=== PATIENT | female | born 1975 | race Caucasian/White ===

== ENCOUNTER → 2016-07-01 | Day surgery (SDC) | payer OTHER ==
--- NOTE | 2016-06-30 18:31 | History & Physical Pre-Op ---
General Information and HPI History of Present Illness: 41-year-old 2 para 2 with bilateral ovarian cysts status post ovarian cystectomy December 2015 with mucinous cyst now has recurrence of same cyst as well as contralateral. CA-125 is within normal limits. Patient is admitted today for bilateral laparoscopic ovarian cystectomy. Allergies/Medications Allergies: Coded Allergies: NO KNOWN ALLERGIES (02/29/12) Home Med list No Known Home Medications Past History Medical History Neurological: NONE EENT: NONE Cardiovascular: NONE Respiratory: NONE Gastrointestinal: NONE Hepatic: NONE Renal: NONE Musculoskeletal: NONE Psychiatric: NONE Endocrine: NONE Tetanus Vaccine: 03/02/12 Surgical History Pertinent Surgical History: tubal ligation, laparoscopic ovarian cystectomy Review of Systems Review of Systems Constitutional: Reports: no symptoms. EENTM: Reports: no symptoms. Cardiovascular: Reports: no symptoms. Respiratory: Reports: no symptoms. GI: Reports: no symptoms. Genitourinary: Reports: no symptoms. Musculoskeletal: Reports: no symptoms. Skin: Reports: no symptoms. Neurological/Psychological: Reports: no symptoms. Hematologic/Endocrine: Reports: no symptoms. Immunologic/Allergic: Reports: no symptoms. All Other Systems: Reviewed and Negative Exam & Diagnostic Data Last 24 Hrs of Vital Signs/I&O Vital signs stable Physical Exam: HEENT: Normocephalic atraumatic Chest: Clear to auscultation Cardiovascular: Normal S1, S2 Abdomen: Soft nontender no mass Pelvic: Deferred to the OR Extremities: No clubbing cyanosis or edema Neurologic: Nonfocal Assessment/Plan Assessment/Plan: Bilateral ovarian cysts, mucinous pathology Plan: Bilateral laparoscopic ovarian cystectomies As Ranked By This Provider Problem List: 1. Ovarian cyst
[~2016-07-01] VITALS: Ht 162.6 cm; Wt 67.6 kg
--- NOTE | 2016-07-06 17:32 | Operative Report ---
Operative/Inv Procedure Report Surgery Date: 07/01/16 Name of Procedure: Bilateral laparoscopic ovarian cystectomies. Pre-Operative Diagnosis: Bilateral ovarian cysts Post-Operative Diagnosis: Same Estimated Blood Loss: less than 50ml Surgeon/Camp Advisor: LAMONTE ROBERTSON MD Anesthesia: general endotracheal tube Operative/Procedure Note Note: The patient was brought to the operating room placed on the OR table in the dorsal supine position. She was given an adequate anesthesia she was successfully intubated. She was repositioned in a modified dorsal lithotomy. She was prepped and draped in usual sterile fashion. A weighted speculum was inserted into the vagina with the help of a [place] retractor single-tooth tenaculum was attached to the anterior lip of the cervix. An acorn cannula was then inserted into the cervical os and attached to the tenaculum. The weighted speculum was removed and a Bejarano catheter was placed into the bladder and drained clear yellow urine. The surgeon's gloves were changed and attention was paid to the abdomen. An infraumbilical skin incision was made with the scalpel and the Veress needle was placed into the abdominal cavity. The abdomen was insufflated with CO2 gas under high flow and low pressure until an adequate pneumoperitoneum had been achieved. It was removed in place with a 5 mm disposable trocar. Through this trocar sleeve the camera was placed and good anatomic location was verified as well as hemostasis. The patient was then placed into Trendelenburg position. 2 lower ports were made under direct visualization both 5 mm in the midline and the left lower quadrant. Pelvic washings were obtained. The uterus appeared to be normal. The right ovary was approximately 8 x 6 cm in size and twisted anteriorly. Fallopian tube appeared normal. The left ovary had a very small cyst on. The right ovary was aspirated for small amount of fluid. Then the wall was opened with electrocautery. The wall was removed in sequential moments with the ligature until the entire to cyst was removed intact. The left ovarian cyst was also biopsied and sampled and opened. An Endobag was placed into the abdominal cavity through the lower port and the specimens were removed. The upper abdomen was noted to be normal. The surgical sites were noted to be hemostatic. The pelvis and abdomen were irrigated. The CO2 gas was allowed to escape the abdomen. The ports were closed in the usual fashion with 0 Polysorb on the fascia and 4-0 Polysorb on the skin. The vaginal instruments removed the patient was awakened and sent to recovery in good condition. All needle, sponge, and management counts were correct at the end of the procedure 2.
== END ==
LOC: STS 01:54
DX: N83.202 Unspecified ovarian cyst, left side (principal); D27.0 Benign neoplasm of right ovary; N83.201 Unspecified ovarian cyst, right side
CPT/HCPCS: 81025; 88305; 88307; J0131; J2250; J3250

== ENCOUNTER → 2017-11-03 | Day surgery (SDC) | payer OTHER ==
--- NOTE | 2017-11-02 19:40 | History & Physical Pre-Op ---
General Information and HPI History of Present Illness: This patient is a 42-year-old 3 para 3 with persistent right ovarian cyst admitted today for laparoscopic excision of right ovarian cyst. Allergies/Medications Allergies: Coded Allergies: No Known Allergies (11/02/17) Home Med list No Known Home Medications Past History Medical History Neurological: NONE EENT: NONE Cardiovascular: NONE Respiratory: NONE Gastrointestinal: NONE Hepatic: NONE Renal: NONE Musculoskeletal: NONE Psychiatric: NONE Endocrine: NONE Tetanus Vaccine: 03/02/12 Surgical History Pertinent Surgical History: tubal ligation Review of Systems Review of Systems Constitutional: Reports: no symptoms. EENTM: Reports: no symptoms. Cardiovascular: Reports: no symptoms. Respiratory: Reports: no symptoms. GI: Reports: no symptoms. Genitourinary: Reports: no symptoms. Musculoskeletal: Reports: no symptoms. Skin: Reports: no symptoms. Neurological/Psychological: Reports: no symptoms. Hematologic/Endocrine: Reports: no symptoms. Immunologic/Allergic: Reports: no symptoms. All Other Systems: Reviewed and Negative Exam & Diagnostic Data Last 24 Hrs of Vital Signs/I&O Intake & Output 11/02 1600 11/02 0800 11/02 0000 Intake Total Output Total Balance Patient 162 lb Weight Physical Exam: HEENT: Normocephalic atraumatic Chest: Clear to auscultation bilaterally Cardiovascular: Normal S1-S2 Abdomen: Soft nontender no masses Pelvic: Deferred OR Extremities: No clubbing cyanosis or edema Neurologic: Nonfocal Assessment/Plan Assessment/Plan: Right ovarian cyst simple Plan: Laparoscopic excision of right ovarian cyst As Ranked By This Provider Problem List: 1. Ovarian cyst
[~2017-11-03] VITALS: Ht 162.6 cm; Wt 73.5 kg
--- NOTE | 2017-11-03 13:51 | Operative Report ---
Operative/Inv Procedure Report Surgery Date: 11/03/17 Name of Procedure: Laparoscopic right ovarian cystectomy Pre-Operative Diagnosis: Right ovarian cyst Post-Operative Diagnosis: Same Estimated Blood Loss: less than 50ml Surgeon/Heavy Forger: Willie Melendez MD Anesthesia: general endotracheal tube Operative/Procedure Note Note: Patient is brought to the operating room placed on the OR table in the dorsal spine position. She was given adequate general anesthesia and successfully intubated. Prior to induction of anesthesia Venodyne boots were placed and activated. Patient was then repositioned in modified dorsal lithotomy and prepped and draped in usual sterile fashion. Weighted speculum was inserted into the vagina with help of a Kat retractor single-tooth tenaculum was attached to the anterior lip of the cervix. A acorn cannula was inserted into the cervix and attached to the tenaculum. The surgeon's gloves were changed and attention was paid to the abdomen. An infra local skin incision was made with the scalpel and a Veress needle was placed into the abdomen was insufflated with CO2 gas under high flow and low pressure until an adequate pneumoperitoneum had been achieved. At this point the Veress needle was removed and a 5 mm disposable trocar was inserted under direct visualization. The perineal cavity was entered completely and hemostasis was good. The patient was then placed into Trendelenburg position. A suprapubic stab incision was made with the scalpel and a 5 mm blunt trocar was inserted under direct visualization. Through this trocar sleeve the blunt probe was placed for manipulation of the organs. Bladder was previously catheterized and a Bejarano was currently draining clear yellow urine. The uterus appeared normal anteverted the right ovary was enlarged and adherent to the right pelvic sidewall and appeared to have 3 cyst on it. Of note it appeared that the right ureter was coursing over the broad ligament over the ovary down the side of the uterus. The right ovary was able to be rotated slightly to get underneath into the ventral side of. A left lower quadrant stab incision was made and a 5 mm port was placed under direct visualization. Through this port the needle aspirator was placed and drained a simple cyst on the ovary for approximately 20 mL of straw-colored fluid. At this point the cyst wall was grasped and opened and a piece was sent to pathology. Using the 2 lower ports for grasping and coagulation the other cysts were removed with bipolar cautery. These were activated and brought through the trocar and sent to pathology. Care was taken not to operate near the right ureter. The surgical site and pelvis were copiously irrigated and the ovarian wall was coagulated with the Bovie where needed for good hemostasis. At the end of the procedure hemostasis was good and the irrigation was removed. The left ovary did have a corpus luteum cyst on it which was left alone. Due to gas was then allowed to escape the abdomen and the skin incisions were closed with 4-0 Biosyn in an interrupted fashion. The vaginal instruments removed as well as the Bejarano which showed cloudy urine. This was then awakened and sent to recovery in good condition. All needle, sponge, and inspected counts are correct at the end of procedure 2.
== END ==
LOC: STS 03:07 → EDSTATUS 07:00
DX: D27.0 Benign neoplasm of right ovary (principal); F17.200 Nicotine dependence, unspecified, uncomplicated
CPT/HCPCS: 81025; 87086; 88305; J0131; J2250; J3250; J3490